=== PATIENT | male | born 1970 | race Caucasian/White ===

== ENCOUNTER → 2018-06-17 | Outpatient (CLI) | payer OTHER ==
[~2018-06-17] MED LIST: GADOBUTROL 10 ML VIAL IVP ONE
== END ==
LOC: FIMAGING 11:37
PROVIDERS: ATTEND Specialist
DX: R39.89 Other symptoms and signs involving the genitourinary system (principal); R10.2 Pelvic and perineal pain; N43.3 Hydrocele, unspecified
CPT/HCPCS: A9585